=== PATIENT | female | born 1935 | race Caucasian/White ===

== ENCOUNTER 2017-08-29 08:59 | Inpatient (IN) | payer MEDICARE, OTHER ==
[2017-08-29] MEDS ORDERED: Sodium Chloride 0.9% 1,000 ML IV SCH (10:30)
[2017-08-29] MEDS ORDERED: metroNIDAZOLE/Normal Saline 500 MG in Premix Bag 1 BAG IV ONE (11:30)
[2017-08-29] MEDS ORDERED: ceFAZolin 2 GM in Premix Bag 1 BAG IV ONE (11:30)
[2017-08-29] MEDS ORDERED: Propofol 200 MG/20 ML SDV ONE ×3 (12:43→14:25)
[2017-08-29] MEDS ORDERED: Midazolam 1 MG/ML 2 ML SDV ONE (12:43)
[2017-08-29] MEDS ORDERED: fentaNYL 100 MCG/2 ML SDV ONE (12:43)
[2017-08-29] MEDS ORDERED: Naloxone 0.4 MG/ML SDV IVPUSH PRN (13:22)
[2017-08-29] MEDS ORDERED: Sodium Chloride 0.9% 10 ML ONE (13:39)
[2017-08-29] MEDS ORDERED: Bupivacaine 0.5% 30 ML SDV ONE (13:45)
[2017-08-29] MEDS ORDERED: Bacitracin Oint 28.35 GM Tube TOP ONE (14:30)
[2017-08-29] MEDS ORDERED: Promethazine 25 MG/ML SDV IM PRN (14:54)
[2017-08-29] MEDS ORDERED: Benzocaine/Cetylpyridinium/Menthol Lozenge MUCMEM PRN (14:54)
[2017-08-29] MEDS ORDERED: Ondansetron 4 MG/2 ML SDV IVPUSH PRN (14:54)
[2017-08-29] MEDS ORDERED: diphenhydrAMINE 50 MG/ML SDV IVPUSH PRN (14:54)
[2017-08-29] MEDS ORDERED: Polyethylene Glycol 3350 Powder 17 GM Packet PO PRN (14:54)
[2017-08-29] MEDS ORDERED: Docusate Sodium 100 MG Cap PO PRN (14:54)
[2017-08-29] MEDS ORDERED: Zolpidem 5 MG Tab PO PRN (14:54)
[2017-08-29] MEDS ORDERED: Bisacodyl 5 MG Tab PO PRN (14:54)
[2017-08-29] MEDS: Sodium Chloride 0.9% 1,000 ML IV SCH ×2 (15:51→23:33)
[2017-08-29] MEDS: Acetaminophen 325 MG Tab PO PRN (16:33)
[2017-08-29] MEDS: fentaNYL 2,500 MCG in Sodium Chloride 0.9% 200 ML EPIDUR SCH (17:03)
[2017-08-29] MEDS: hydrOXYzine HCl 100 MG/2 ML SDV IM PRN ×2 (17:36→21:44)
[2017-08-29] MEDS: Insulin Aspart 100 Units/ML 3 ML Pen SUBCUT SCH ×2 (19:04→21:17)
[2017-08-30] MEDS: Acetaminophen 325 MG Tab PO PRN ×2 (02:15→21:45)
[2017-08-30] MEDS: Sodium Chloride 0.9% 1,000 ML IV SCH (07:34)
[2017-08-30] MEDS: Insulin Aspart 100 Units/ML 3 ML Pen SUBCUT SCH ×4 (08:08→21:11)
[2017-08-30] MEDS: Citalopram 20 MG Tab PO SCH (09:01)
--- NOTE | 2017-08-30 11:07 | PN ---
DATE OF SERVICE: 08/30/2017 SUBJECTIVE: The patient is doing well. Pain is well controlled. No nausea, vomiting, shortness of breath, or chest pain. OBJECTIVE: VITAL SIGNS: Stable. Temperature 97.9, blood pressure 132/66, pulse 76, respirations 18, and 96% on 1 L now. CARDIOVASCULAR: Regular rhythm and rate. Dressings are intact. RESPIRATORY: Lungs are clear to auscultation bilaterally. LABORATORY RESULTS: Show a hemoglobin of 8.1, white blood cell count is normal. Electrolytes are essentially normal. ASSESSMENT: Status post [id number]-[id number]-[id number] amputation, right. PLAN: 1. Continue the epidural at this time. 2. Work on diet and activity. 3. Physical therapy to see to initiate range of motion. 4. Continue to work on discharge plan. Eleuterio Colón MD /[id number]
[2017-08-30] MEDS: fentaNYL 2,500 MCG in Sodium Chloride 0.9% 200 ML EPIDUR SCH (13:14)
[2017-08-30] MEDS ORDERED: Acetaminophen/oxyCODONE 325-10 MG Tab PO PRN (14:43)
[2017-08-30] MEDS ORDERED: Morphine 2 MG/ML Syringe IVPUSH PRN (14:44)
--- NOTE | 2017-08-30 15:24 | PCM.PN ---
- General Info Date of Service: 08/30/17 Functional Status: Reports: Pain Controlled, Tolerating Diet - Review of Systems Pulmonary: Denies: Shortness of Breath Musculoskeletal: Reports: Leg Pain Systems Review Comment:: Karey was admitted yesterday for a left uvqvu-etz-oxur amputation. There has been some mild confusion overnight but in general she is doing well. Her pain has been well-controlled. She has not had any fevers. Blood sugars have been well controlled. Blood pressures have been on the low side of normal through the night but are slowly increasing today. No shortness of breath or abdominal pain. - Patient Data Vitals - Most Recent: Last Vital Signs Temp 36.8 C 08/30/17 11:00 Pulse 74 08/30/17 11:00 Resp 16 08/30/17 14:00 BP 148/68 H 08/30/17 11:00 Pulse Ox 96 08/30/17 12:39 Weight - Most Recent: 65.431 kg I&O - Last 24 Hours: Intake & Output 08/30/17 08/30/17 08/30/17 06:59 14:59 22:59 Intake Total 2095 240 Output Total 410 135 Balance 1685 105 Lab Results Last 24 Hours: Laboratory Results - last 24 hr 08/29/17 08/30/17 08/30/17 Range/Units 14:53 05:11 05:11 WBC 5.5 (4.5-11.0) K/uL RBC 2.67 L (3.30-5.50) M/uL Hgb 8.1 L (12.0-15.0) g/dL Hct 26.6 L (36.0-48.0) % MCV 100 H (80-98) fL MCH 30 (27-31) pg MCHC 31 L (32-36) % Plt Count 223 (150-400) K/uL Neut % (Auto) 74 H (36-66) % Lymph % (Auto) 15 L (24-44) % [place] % (Auto) 10 H (2-6) % Eos % (Auto) 2 (2-4) % Baso % (Auto) 0 (0-1) % Sodium 136 L (140-148) mmol/L Potassium 3.5 L (3.6-5.2) mmol/L Chloride 103 (100-108) mmol/L Carbon Dioxide 27 (21-32) mmol/L Anion Gap 9.5 (5.0-14.0) mmol/L BUN 18 (7-18) mg/dL Creatinine 0.8 (0.6-1.0) mg/dL Est Cr Clr Drug Dosing 43.62 mL/min Estimated GFR (MDRD) > 60 (>60) Glucose 123 H (74-106) mg/dL Calcium 7.6 L (8.5-10.1) mg/dL Blood Type O POSITIVE Gel Antibody Screen Negative Med Orders - Current: Current Medications Acetaminophen (Tylenol) 650 mg PO Q6H PRN PRN Reason: Pain (mild 1-3) Last Admin: 08/30/17 02:15 Dose: 650 mg Aspirin (Halfprin) 81 mg PO DAILY [facility] Benzocaine/Menthol (Cepacol Sore Throat) 1 lozenge MUCMEM Q1H PRN PRN Reason: Sore Throat Bisacodyl (Dulcolax) 5 mg PO DAILY PRN PRN Reason: Constipation Bupropion HCl (Wellbutrin Xl) 150 mg PO DAILY [facility] Citalopram Hydrobromide (Celexa) 20 mg PO DAILY [facility] Last Admin: 08/30/17 09:01 Dose: 20 mg Clonazepam (Klonopin) 1 mg PO BEDTIME [facility] Diphenhydramine HCl (Benadryl) 50 mg IVPUSH Q4H PRN PRN Reason: Itching Docusate Sodium (Colace) 100 mg PO BID PRN PRN Reason: Constipation Hydroxyzine HCl (Vistaril) 50 mg IM Q4H PRN PRN Reason: Nausea Last Admin: 08/29/17 21:44 Dose: 50 mg Ibuprofen (Motrin) 800 mg PO Q8H [facility] Insulin Aspart (Novolog) 0 unit SUBCUT QIDACANDBED [facility] PRN Reason: Protocol Last Admin: 08/30/17 12:36 Dose: Not Given Morphine Sulfate (Morphine) 1 - 4 mg IVPUSH Q1H PRN PRN Reason: Pain (severe 7-10) Non-Formulary Medication (Gabapentin [Neurontin]) 600 mg PO BID [facility] Non-Formulary Medication (Hydrochlorothiazide/Lisinopril [Lisinopril-Hctz 20-25 Mg]) 1 tab PO DAILY [facility] Ondansetron HCl (Zofran) 4 mg IVPUSH Q6H PRN PRN Reason: Nausea/Vomiting Oxycodone/Acetaminophen (Percocet 325-10 Mg) 1 - 2 tab PO Q4H PRN PRN Reason: Pain (severe 7-10) Polyethylene Glycol (Miralax) 17 gm PO DAILY PRN PRN Reason: Constipation Promethazine HCl (Phenergan) 25 mg IM Q6H PRN PRN Reason: Nausea Senna/Docusate Sodium (Senna Plus) 1 tab PO BID PRN PRN Reason: Constipation Zolpidem Tartrate (Ambien) 5 mg PO BEDTIME PRN PRN Reason: Insomnia Discontinued Medications Bacitracin (Bacitracin Oint) 0 gm TOP ONETIME ONE Stop: 08/29/17 14:31 Last Admin: 08/29/17 14:29 Dose: 1 oz Bupivacaine HCl (Marcaine 0.5%) Confirm Administered Dose 30 ml .ROUTE .STK-MED ONE Stop: 08/29/17 13:46 Fentanyl (Sublimaze) Confirm Administered Dose 100 mcg .ROUTE .STK-MED ONE Stop: 08/29/17 12:44 Sodium Chloride (Normal Saline) 1,000 mls @ 75 mls/hr IV ASDIRECTED [place] Last Admin: 08/29/17 11:07 Dose: 75 mls/hr Cefazolin Sodium/Dextrose 2 gm (/ Premix) 50 mls @ 100 mls/hr IV ONCALL ONE Stop: 08/29/17 11:59 Last Admin: 08/29/17 12:29 Dose: 100 mls/hr Metronidazole 500 mg/ Premix 100 mls @ 100 mls/hr IV ONCALL ONE Stop: 08/29/17 12:29 Last Admin: 08/29/17 12:34 Dose: 100 mls/hr Fentanyl 2,500 mcg/ Sodium (Chloride) 250 mls @ 0 mls/hr EPIDUR TITRATE [place]; Titrate PRN Reason: Protocol Last Admin: 08/30/17 13:14 Dose: 10 mls/hr, 10 mls/hr Sodium Chloride (Normal Saline) Confirm Administered Dose 10 mls @ as directed .ROUTE .STK-MED ONE Stop: 08/29/17 13:40 Sodium Chloride (Normal Saline) 1,000 mls @ 125 mls/hr IV ASDIRECTED [place] Last Admin: 08/30/17 07:34 Dose: 125 mls/hr Insulin Aspart (Novolog) 0 unit SUBCUT QID [facility] PRN Reason: Protocol Last Admin: 08/29/17 21:17 Dose: 3 units Insulin Aspart (Novolog) 0 unit SUBCUT BIDAC [facility] PRN Reason: Protocol Midazolam HCl (Versed 1 Mg/Ml) Confirm Administered Dose 2 mg .ROUTE .STK-MED ONE Stop: 08/29/17 12:44 Naloxone HCl (Narcan) 0.1 mg IVPUSH Q5M PRN PRN Reason: RESP RATE LESS THAN 6/MINUTE Propofol (Diprivan 20 Ml) Confirm Administered Dose 200 mg .ROUTE .STK-MED ONE Stop: 08/29/17 12:44 Propofol (Diprivan 20 Ml) Confirm Administered Dose 200 mg .ROUTE .STK-MED ONE Stop: 08/29/17 13:15 Propofol (Diprivan 20 Ml) Confirm Administered Dose 200 mg .ROUTE .STK-MED ONE Stop: 08/29/17 14:26 - Exam Quality Assessment: No: Supplemental Oxygen General: Alert, Oriented, Cooperative, No Acute Distress Neck: Supple Lungs: Clear to Auscultation, Normal Respiratory Effort Cardiovascular: Regular Rate, Regular Rhythm GI/Abdominal Exam: Soft, No Distention Extremities: No Pedal Edema (on the right), Other (left BKA wrapped in [place], dry and intact) Skin: Warm, Dry Psy/Mental Status: Alert, Normal Affect - Problem List Review Problem List Initiated/Reviewed/Updated: Yes - My Orders Last 24 Hours: My Active Orders 08/30/17 21:00 ClonazePAM [KlonoPIN] 1 mg PO BEDTIME Gabapentin [Neurontin] 600 mg PO BID 08/31/17 09:00 Aspirin [Halfprin] 81 mg PO DAILY Hydrochlorothiazide/Lisinopril [Lisinopril-HCTZ 20-25 MG] 1 tab PO DAILY buPROPion [Wellbutrin XL] 150 mg PO DAILY - Plan Plan:: ASSESSMENT AND PLAN - Status post left hgfxa-qtv-[id number] amputation - likely doing well. Epidural catheter removed today. Hemoglobin is 8.1. -Postop cares per Dr. Colón -Restart gabapentin for additional pain control -Restart clonazepam for restless legs Type 2 diabetes mellitus, controlled - metformin on hold in the immediate postoperative period. Blood sugars have been well-controlled. -Continue sliding scale at this time -Restart metformin in the next day or 2 Essential hypertension - blood pressure had been on the low normal side but is slowly increasing. -Restart home medication tomorrow Houston Wang M.D.
[2017-08-30] MEDS: Ibuprofen 800 MG Tab PO SCH ×2 (16:02→23:42)
[2017-08-30] MEDS: Gabapentin 300 MG Cap PO SCH (21:17)
[2017-08-30] MEDS: ClonazePAM 1 MG Tab PO SCH (21:17)
[2017-08-31] MEDS: Acetaminophen 325 MG Tab PO PRN (03:13)
[2017-08-31] MEDS: Insulin Aspart 100 Units/ML 3 ML Pen SUBCUT SCH ×4 (08:03→20:55)
[2017-08-31] MEDS: Gabapentin 300 MG Cap PO SCH ×2 (08:04→20:40)
[2017-08-31] MEDS: buPROPion 150 MG Tab.ER PO SCH (08:04)
[2017-08-31] MEDS: Aspirin 81 MG Tab.EC PO SCH (08:04)
[2017-08-31] MEDS: Citalopram 20 MG Tab PO SCH (08:04)
[2017-08-31] MEDS: Lisinopril 20 MG Tab PO SCH (08:05)
[2017-08-31] MEDS: Ibuprofen 800 MG Tab PO SCH ×3 (08:05→23:25)
[2017-08-31] MEDS: Hydrochlorothiazide 25 MG Tab PO SCH (08:06)
--- NOTE | 2017-08-31 10:32 | PN ---
DATE OF SERVICE: 08/31/2017 SUBJECTIVE: The patient is doing well. Pain is well controlled. No nausea, vomiting, shortness of breath, or chest pain. OBJECTIVE: VITAL SIGNS: Stable. Temperature 97.2, blood pressure 139/65, pulse 66, respirations 18, and 96% on room air. CARDIOVASCULAR: Regular rhythm and rate. RESPIRATORY: Lungs are clear to consultation bilaterally. Dressings are intact. ASSESSMENT AND PLAN: Status post [id number] amputation. PLAN: Continue work on diet and activity. The patient will be queued up for a probable senior care transfer tomorrow nima Colón MD /[id number]
--- NOTE | 2017-08-31 14:51 | PCM.PN ---
- General Info Date of Service: 08/31/17 Functional Status: Reports: Pain Controlled, Tolerating Diet - Review of Systems General: Denies: Fever Musculoskeletal: Reports: Leg Pain Systems Review Comment:: No acute events overnight. Blood sugars well-controlled. Mild stomach pain at this time. Blood pressures have been stable. - Patient Data Vitals - Most Recent: Last Vital Signs Temp 36.6 C 08/31/17 11:14 Pulse 65 08/31/17 11:14 Resp 16 08/31/17 11:14 BP 129/61 08/31/17 11:14 Pulse Ox 96 08/31/17 11:14 Weight - Most Recent: 65.431 kg I&O - Last 24 Hours: Intake & Output 08/30/17 08/31/17 08/31/17 22:59 06:59 14:59 Intake Total 240 600 Output Total 620 100 475 Balance -380 -100 125 Lab Results Last 24 Hours: Laboratory Results - last 24 hr 08/31/17 Range/Units 05:49 WBC 5.3 (4.5-11.0) K/uL RBC 2.64 L (3.30-5.50) M/uL Hgb 8.0 L (12.0-15.0) g/dL Hct 25.9 L (36.0-48.0) % MCV 98 (80-98) fL MCH 30 (27-31) pg MCHC 31 L (32-36) % Plt Count 164 (150-400) K/uL Neut % (Auto) 67 H (36-66) % Lymph % (Auto) 20 L (24-44) % [place] % (Auto) 11 H (2-6) % Eos % (Auto) 2 (2-4) % Baso % (Auto) 0 (0-1) % Med Orders - Current: Current Medications Acetaminophen (Tylenol) 650 mg PO Q6H PRN PRN Reason: Pain (mild 1-3) Last Admin: 08/31/17 03:13 Dose: 650 mg Aspirin (Halfprin) 81 mg PO DAILY [facility] Last Admin: 08/31/17 08:04 Dose: 81 mg Benzocaine/Menthol (Cepacol Sore Throat) 1 lozenge MUCMEM Q1H PRN PRN Reason: Sore Throat Bisacodyl (Dulcolax) 5 mg PO DAILY PRN PRN Reason: Constipation Bupropion HCl (Wellbutrin Xl) 150 mg PO DAILY [facility] Last Admin: 08/31/17 08:04 Dose: 150 mg Citalopram Hydrobromide (Celexa) 20 mg PO DAILY [facility] Last Admin: 08/31/17 08:04 Dose: 20 mg Clonazepam (Klonopin) 1 mg PO BEDTIME [facility] Last Admin: 08/30/17 21:17 Dose: 1 mg Diphenhydramine HCl (Benadryl) 50 mg IVPUSH Q4H PRN PRN Reason: Itching Docusate Sodium (Colace) 100 mg PO BID PRN PRN Reason: Constipation Gabapentin (Neurontin) 600 mg PO BID [facility] Last Admin: 08/31/17 08:04 Dose: 600 mg Hydrochlorothiazide (Hydrochlorothiazide) 25 mg PO DAILY [facility] Last Admin: 08/31/17 08:06 Dose: 25 mg Hydroxyzine HCl (Vistaril) 50 mg IM Q4H PRN PRN Reason: Nausea Last Admin: 08/29/17 21:44 Dose: 50 mg Ibuprofen (Motrin) 800 mg PO Q8H [facility] Last Admin: 08/31/17 08:05 Dose: 800 mg Insulin Aspart (Novolog) 0 unit SUBCUT QIDACANDBED [facility] PRN Reason: Protocol Last Admin: 08/31/17 11:37 Dose: Not Given Lisinopril (Prinivil) 20 mg PO DAILY [facility] Last Admin: 08/31/17 08:05 Dose: 20 mg Morphine Sulfate (Morphine) 1 - 4 mg IVPUSH Q1H PRN PRN Reason: Pain (severe 7-10) Ondansetron HCl (Zofran) 4 mg IVPUSH Q6H PRN PRN Reason: Nausea/Vomiting Oxycodone/Acetaminophen (Percocet 325-10 Mg) 1 - 2 tab PO Q4H PRN PRN Reason: Pain (severe 7-10) Polyethylene Glycol (Miralax) 17 gm PO DAILY PRN PRN Reason: Constipation Promethazine HCl (Phenergan) 25 mg IM Q6H PRN PRN Reason: Nausea Senna/Docusate Sodium (Senna Plus) 1 tab PO BID PRN PRN Reason: Constipation Zolpidem Tartrate (Ambien) 5 mg PO BEDTIME PRN PRN Reason: Insomnia Discontinued Medications Bacitracin (Bacitracin Oint) 0 gm TOP ONETIME ONE Stop: 08/29/17 14:31 Last Admin: 08/29/17 14:29 Dose: 1 oz Bupivacaine HCl (Marcaine 0.5%) Confirm Administered Dose 30 ml .ROUTE .STK-MED ONE Stop: 08/29/17 13:46 Fentanyl (Sublimaze) Confirm Administered Dose 100 mcg .ROUTE .STK-MED ONE Stop: 08/29/17 12:44 Sodium Chloride (Normal Saline) 1,000 mls @ 75 mls/hr IV ASDIRECTED [place] Last Admin: 08/29/17 11:07 Dose: 75 mls/hr Cefazolin Sodium/Dextrose 2 gm (/ Premix) 50 mls @ 100 mls/hr IV ONCALL ONE Stop: 08/29/17 11:59 Last Admin: 08/29/17 12:29 Dose: 100 mls/hr Metronidazole 500 mg/ Premix 100 mls @ 100 mls/hr IV ONCALL ONE Stop: 08/29/17 12:29 Last Admin: 08/29/17 12:34 Dose: 100 mls/hr Fentanyl 2,500 mcg/ Sodium (Chloride) 250 mls @ 0 mls/hr EPIDUR TITRATE [place]; Titrate PRN Reason: Protocol Last Admin: 08/30/17 13:14 Dose: 10 mls/hr, 10 mls/hr Sodium Chloride (Normal Saline) Confirm Administered Dose 10 mls @ as directed .ROUTE .STK-MED ONE Stop: 08/29/17 13:40 Sodium Chloride (Normal Saline) 1,000 mls @ 125 mls/hr IV ASDIRECTED [place] Last Admin: 08/30/17 07:34 Dose: 125 mls/hr Insulin Aspart (Novolog) 0 unit SUBCUT QID [facility] PRN Reason: Protocol Last Admin: 08/29/17 21:17 Dose: 3 units Insulin Aspart (Novolog) 0 unit SUBCUT BIDAC [facility] PRN Reason: Protocol Midazolam HCl (Versed 1 Mg/Ml) Confirm Administered Dose 2 mg .ROUTE .STK-MED ONE Stop: 08/29/17 12:44 Naloxone HCl (Narcan) 0.1 mg IVPUSH Q5M PRN PRN Reason: RESP RATE LESS THAN 6/MINUTE Propofol (Diprivan 20 Ml) Confirm Administered Dose 200 mg .ROUTE .STK-MED ONE Stop: 08/29/17 12:44 Propofol (Diprivan 20 Ml) Confirm Administered Dose 200 mg .ROUTE .STK-MED ONE Stop: 08/29/17 13:15 Propofol (Diprivan 20 Ml) Confirm Administered Dose 200 mg .ROUTE .STK-MED ONE Stop: 08/29/17 14:26 - Exam Quality Assessment: No: Supplemental Oxygen General: Alert, Oriented, Cooperative, No Acute Distress Lungs: Normal Respiratory Effort GI/Abdominal Exam: Soft, No Distention Psy/Mental Status: Alert, Normal Affect - Problem List Review Problem List Initiated/Reviewed/Updated: Yes - My Orders Last 24 Hours: My Active Orders 08/30/17 21:00 ClonazePAM [KlonoPIN] 1 mg PO BEDTIME Gabapentin [Neurontin] 600 mg PO BID 08/31/17 09:00 Aspirin [Halfprin] 81 mg PO DAILY Hydrochlorothiazide 25 mg PO DAILY Lisinopril [Prinivil] 20 mg PO DAILY buPROPion [Wellbutrin XL] 150 mg PO DAILY - Plan Plan:: ASSESSMENT AND PLAN - Status post left [id number]-[id number] amputation - likely doing well. Pain well- controlled. Hemoglobin is 8. -Postop cares per Dr. Colón -Continue gabapentin for additional pain control -Continue clonazepam for restless legs Type 2 diabetes mellitus, controlled - metformin on hold in the immediate postoperative period. Blood sugars have been well-controlled. -Continue sliding scale at this time -Restart metformin tomorrow Essential hypertension - blood pressure had been on the low normal side but is slowly increasing. -Restart home medication Hospitalist service will sign off at this time. Please feel free to contact with specific questions or concerns. Houston Wang M.D.
[2017-08-31] MEDS: ClonazePAM 1 MG Tab PO SCH (20:45)
[2017-09-01] MEDS ORDERED: metFORMIN 500 MG Tab PO SCH (08:00)
--- NOTE | 2017-09-01 08:07 | DISCH ---
DISCHARGE DIAGNOSIS: Status post left uxtic-qmw-[id number] amputation. SUMMARY OF HOSPITAL COURSE: This is a pleasant 82-year-old female who underwent a left qkfon-nou-wywz amputation. Through postoperative day 1, 2 and 3; the patient continued to do well. Prior to discharge, her pain is well controlled. No nausea, vomiting, shortness of breath or chest pain. DISCHARGE MEDICATIONS: Please see MAR, but essentially ibuprofen for pain. FOLLOWUP: Follow up with Surgery in 7 to 14 days. ACTIVITY: As tolerated with physical therapy.
--- NOTE | 2017-09-01 08:13 | PN ---
DATE OF SERVICE: 09/01/2017 SUBJECTIVE: The patient continues to improve today. The pain is well controlled. No nausea, vomiting, shortness of breath or chest pain. Having bowel movements. OBJECTIVE: VITAL SIGNS: Stable. She is afebrile 96.2. CARDIOVASCULAR: Regular rhythm and rate. RESPIRATORY: Lungs clear to consultation bilaterally. ABDOMEN: Bowel sounds positive. EXTREMITIES: Left BKA stump shows good healing. No signs of cellulitis or infection. Drain output is minimal. ASSESSMENT: Status post mtjkx-was-zcie amputation. PLAN: The patient will be discharged today. We discussed diet, activity, followup, signs and symptoms of complications and the role of the emergency room. The patient understands these risks and wished to proceed. Eleuterio Colón MD /[id number]
--- NOTE | 2017-09-01 08:37 | OR ---
DATE OF PROCEDURE: 08/29/2017 PROCEDURE: Left knrfn-kqy-dvvs amputation. COMPLICATIONS: None. ANESTHESIA: Epidural/MAC. INDICATIONS: An 82-year-old female with Charcot's foot/infected left foot requiring definitive treatment. Risks, benefits, alternatives, limitations including, but not limited to infection, bleeding, cardiovascular collapse, requirement for blood transfusion, revisional surgery, infection, open wounds, and other risks not listed here were explained to the patient and wished to proceed. PREOPERATIVE DIAGNOSIS: Charcot's foot/infected foot. POSTOPERATIVE DIAGNOSIS: Charcot's foot/infected foot. PROCEDURE IN DETAIL: The patient was placed in a supine position. The procedure to be performed in a classic posterior flap amputation. This was measured about 10 cm distal to the tibial tuberosity. This was marked preoperatively, and then a #15 blade was used to open the skin. In a circumferential fashion, the fat was cauterized. The tibialis anterior, along with the extensor digitorum longus were addressed next. These were mobilized along the Z-type pattern of the posterior flap. Once this was complete, a Rina was used to pass below the tibia. A guillotine amputation was then performed with an anterior bevel. Prior to this, a periosteal elevator was used to mobilize the periosteum, which would also be performed with respect to the fibula. The peroneus longus and brevis were then transected using electrocautery. The fibula was transected using a total power system, and it was approximately 1 cm proximal to the tibial amputation. The tourniquet was then brought up, and an amputation knife was used to transect the gastrocnemius, soleus muscles and the remaining posterior muscle remnants. The peroneal vessels along with the posterior tibial vessels, saphenous vein, and miscellaneous veins were then identified and suture-ligated with 2-0 Vicryl sutures. The tourniquet time was approximately 15 minutes. This was then brought down. Minimal bleeding was controlled with electrocautery. The leg was then inspected for greater than 10 minutes, and no active bleeding was noted. A file was then used to smooth both bones. No step-offs or bone spurs were noted. This was a fairly good irrigation. A gastrocnemius flap was then created in standard fashion using 0 Vicryl attached to the anterior aspect. All muscle groups were then reapproximated in that way, creating the classic flap. The subcutaneous tissues were reapproximated with 3-0 Vicryl. A 0 Prolene horizontal mattress sutures x4 were then used to bolster further and a running 2- 0 suture was also used. A single #7 flat Topher-Watson drain was placed with a separate entry point on the lateral aspect of the left leg. Dressings were then applied using combination of bacitracin, Xeroform, 4x4s, Nile, and Kerlix. The estimated blood loss during this procedure was approximately 150 mL, as there was 600 mL of fluid in the suction and approximately 500 mL of irrigation was used. The patient tolerated this procedure well. Eleuterio Colón MD /[id number]
[2017-09-01] MEDS: Citalopram 20 MG Tab PO SCH (08:58)
[2017-09-01] MEDS: Ibuprofen 800 MG Tab PO SCH (08:58)
[2017-09-01] MEDS: Insulin Aspart 100 Units/ML 3 ML Pen SUBCUT SCH (08:58)
[2017-09-01] MEDS: Lisinopril 20 MG Tab PO SCH (08:59)
[2017-09-01] MEDS: Aspirin 81 MG Tab.EC PO SCH (08:59)
[2017-09-01] MEDS: Hydrochlorothiazide 25 MG Tab PO SCH (08:59)
[2017-09-01] MEDS: Gabapentin 300 MG Cap PO SCH (08:59)
[2017-09-01] MEDS: buPROPion 150 MG Tab.ER PO SCH (08:59)
== END 2017-09-01 10:24 | disposition home or self-care (01) | DRG 42 ==
LOC: JP.SDS 09:43 → JP.MS 09:43 → EDSTATUS 13:30 → JP.MS 15:50
PROVIDERS: ADMIT Surgery; ATTEND Surgery
PROC: 0Y6J0Z2 Detachment at Left Lower Leg, Mid, Open Approach (ICD-10-PCS; principal; 2017-08-29)
DX: E11.610 Type 2 diabetes mellitus with diabetic neuropathic arthropathy (principal); Z79.84 Long term (current) use of oral hypoglycemic drugs; I10 Essential (primary) hypertension; Z85.038 Personal history of other malignant neoplasm of large intestine; Z79.82 Long term (current) use of aspirin
CPT/HCPCS: 36415; 80048; 82962; 85025; 86850; 86900; 86901; 88307; 88311; 94762; 97110-GP; 97162-GP; 97530-GP; A9270-GY; J0690; J2250; J2704; J3010; J3410; J7040; J7050